=== PATIENT | female | born 1980 | race Two or more races ===

== ENCOUNTER 2020-07-28 21:18 | Emergency (ER) | payer BC ==
[~2020-07-28] VITALS: Ht 165.1 cm; Wt 87.5 kg
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
[2020-07-28] MEDS ORDERED: IV NS 0.9% 500 ML BAG IV ONE (22:30)
[2020-07-28 22:34] LABS: BASOPHILS % (AUTO) 0.6 % (0.0-2.0); EOSINOPHILS % (AUTO) 2.1 % (0.0-6.0); HEMATOCRIT 37 % (33-45); HEMOGLOBIN 12.4 g/dL (11.5-14.8); LYMPHOCYTES # (AUTO) 2.2 /CMM (0.8-4.8); LYMPHOCYTES % (AUTO) 29.4 % (20.0-44.0); MEAN CORPUSCULAR HGB CONC 34 g/dl (31.0-36.0); MEAN CORPUSCULAR VOLUME 89 fL (82-100); MONOCYTES # (AUTO) 0.5 /CMM (0.1-1.30); NEUTROPHILS # (AUTO) 4.7 /CMM (1.8-8.9); NEUTROPHILS % (AUTO) 61.9 % (43.0-81.0); PLATELET COUNT (AUTO) 243 /CMM (150-450); RED BLOOD CELL COUNT(AUTO) 4.16 MIL/uL (4.0-5.2); WHITE BLOOD COUNT (AUTO) 7.6 K/uL (4.3-11.0)
[2020-07-28 22:39] LABS: CALCIUM, SERUM 8.8 mg/dL (8.5-10.1); CREATININE 0.7 mg/dL (0.6-1.3); POTASSIUM 3.7 mmol/L (3.5-5.1)
[2020-07-28 22:50] LABS: BILIRUBIN,DIRECT 0.1 mg/dL (0.0-0.2); BILIRUBIN,TOTAL 0.2 mg/dL (0.2-1.0); TOTAL PROTEIN, SERUM 7.6 g/dL (6.4-8.2)
--- NOTE | 2020-07-28 23:03 | NUR ---
US AT BEDSIDE
--- NOTE | 2020-07-29 00:26 | NUR ---
PT is medically stable for d/c per MD. IV removed. Catheter intact and site benign. Pressure and 4x4 applied to site. No bleeding noted.Patient discharged to home in stable condition. Written and verbal after care instructions given. Patient verbalizes understanding of instruction.
[2020-07-29 00:37] VITALS: BP 111/69
== END 2020-07-29 00:37 | disposition home or self-care (01) ==
LOC: ER 21:23
DX: O03.9 Complete or unspecified spontaneous abortion without complication (principal); Z91.038 Other insect allergy status
CPT/HCPCS: 36415; 76805; 80048; 80076; 84702; 85025; 85730; 96360; 99284; J7040

== ENCOUNTER 2022-01-27 14:25 | Emergency (ER) | payer BC ==
[~2022-01-27] VITALS: Ht 162.6 cm; Wt 81.2 kg
--- NOTE | 2022-01-27 14:29 | NUR ---
DR SIMMS AT BEDSIDE
[2022-01-27] MEDS ORDERED: IBUPROFEN 600 MG TABLET ONE (15:53)
[2022-01-27] MEDS ORDERED: IBUP-1955 PO (15:57)
[2022-01-27] MEDS ORDERED: TRAM50TA2 PO (15:57)
[2022-01-27] MEDS ORDERED: IBUPROFEN 600 MG TABLET PO ONE (16:00)
--- NOTE | 2022-01-27 16:09 | NUR ---
Patient discharged to home in stable condition. Written and verbal after care instructions given. Patient verbalizes understanding of instruction.
[2022-01-27 16:10] VITALS: BP 122/71
[2022-01-28] MEDS ORDERED: CYCL5TAB PO (22:09)
[2022-01-28] MEDS ORDERED: ACET-3478 PO (22:09)
== END 2022-01-27 16:12 | disposition home or self-care (01) ==
LOC: ER 14:34
DX: S89.91XA Unspecified injury of right lower leg, initial encounter (principal); Z91.018 Allergy to other foods; V09.9XXA Pedestrian injured in unspecified transport accident, initial encounter; Y93.89 Activity, other specified; Y92.89 Other specified places as the place of occurrence of the external cause; Y99.8 Other external cause status
CPT/HCPCS: 73552; 73564-TC; 73590-TC

== ENCOUNTER 2022-01-28 20:20 | Emergency (ER) | payer BC ==
[~2022-01-28] VITALS: Ht 162.6 cm; Wt 82.6 kg
[~2022-01-28 20:20] MED LIST: IBUP-1955 PO; TRAM50TA2 PO
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
--- NOTE | 2022-01-28 21:19 | NUR ---
PATIENT TAKEN TO CT VIA GENEVI[facility]E
[2022-01-28] MEDS ORDERED: KETOROLAC TROMETHAMINE INJ 30 MG/ML VIAL IM ONE (21:30)
[2022-01-28] MEDS ORDERED: KETOROLAC TROMETHAMINE INJ 30 MG/ML VIAL ONE (21:46)
[2022-01-28] MEDS ORDERED: ACET-3478 PO (22:09)
[2022-01-28] MEDS ORDERED: CYCL5TAB PO (22:09)
--- NOTE | 2022-01-28 22:17 | NUR ---
Patient discharged to home in stable condition. Rx and Written and verbal after care instructions given. Patient verbalizes understanding of instruction.
[2022-01-29 03:03] VITALS: BP 105/64
== END 2022-01-29 03:03 | disposition home or self-care (01) ==
LOC: ER 20:22
DX: M54.50 Low back pain, unspecified (principal); Z91.018 Allergy to other foods; Z79.899 Other long term (current) drug therapy
CPT/HCPCS: 99284; 72131; 96372; J1885

== ENCOUNTER 2023-01-08 21:42 | Emergency (ER) | payer BC ==
[~2023-01-08] VITALS: Ht 165.1 cm; Wt 68.0 kg
[~2023-01-08 21:42] MED LIST changes: +ACET-3478 PO; +CYCL5TAB PO
[2023-01-08] MEDS ORDERED: ACETAMINOPHEN ES 500 MG TABLET PO ONE (22:30)
[2023-01-08] MEDS ORDERED: CYCLOBENZAPRINE 10 MG TABLET PO ONE (22:30)
[2023-01-08] MEDS ORDERED: ACETAMINOPHEN ES 500 MG TABLET ONE (22:32)
[2023-01-08] MEDS ORDERED: CYCL10TA9 PO (22:33)
[2023-01-08] MEDS ORDERED: CYCLOBENZAPRINE 10 MG TABLET ONE (22:33)
[2023-01-08 23:08] VITALS: BP 110/71; TEMP 98.2; O2SAT 99
== END 2023-01-08 23:09 | disposition home or self-care (01) ==
LOC: ER 21:43
DX: M54.50 Low back pain, unspecified (principal); M54.2 Cervicalgia; M25.551 Pain in right hip; Z91.018 Allergy to other foods; V89.2XXA Person injured in unspecified motor-vehicle accident, traffic, initial encounter; Y93.89 Activity, other specified; Y92.89 Other specified places as the place of occurrence of the external cause; Y99.8 Other external cause status